=== PATIENT | male | born 1970 | race African-American/Black ===

== ENCOUNTER 2017-02-25 10:10 | Emergency (ER) | payer SELFPAY ==
[~2017-02-25] VITALS: Ht 180.3 cm; Wt 177.8 kg
[~2017-02-25 10:10] MED LIST: ATOR10 PO; CARD240C6 PO; IBUP600 PO; LORTA5 PO; MOBI7.5T PO
[2017-02-25 10:18] VITALS: BP 148/106; PULSE 92; RESP 16; TEMP 98.9; O2SAT 96
[2017-02-25] MEDS ORDERED: NAPROXEN 500 MG TAB PO ONE (10:30)
[2017-02-25] MEDS ORDERED: ATOR20TA15 PO ×2 (10:43→10:44)
[2017-02-25] MEDS ORDERED: DILT-64 PO (10:44)
[2017-02-25] MEDS ORDERED: ASPI1TAB69 PO (10:44)
--- NOTE | 2017-02-25 11:07 | RADHPO ---
EXAM DATE/TIME: 02/25/2017 10:37 [place] COMPARISON: No previous studies available for comparison. INDICATIONS : Right posterior ankle pain and swelling, patient fell through bathroom floor last night. MEDICAL HISTORY : None. SURGICAL HISTORY : None. ENCOUNTER: Initial ACUITY: 2 days PAIN SCORE: 8/10 LOCATION: Right posterior ankle FINDINGS: 4 views of the right ankle demonstrate no acute fracture or dislocation. Mineralization is normal and ankle mortise is intact. Ossification adjacent to lateral malleolus may be related to old trauma. Th ere were degenerative changes at the tibiotalar joint and likely at the subtalar joint. No soft tissu e abnormality or radiopaque foreign body is seen. CONCLUSION: Chronic changes are identified, as above. No definite acute finding is visualized. Jairo Ceron MD on February 25, 2017 at 11:03 Board Certified Radiologist. This report was verified electronically.
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
[2017-02-25] MEDS ORDERED: NAPR500T PO (11:20)
== END 2017-02-25 11:40 | disposition home or self-care (01) ==
LOC: PHED 10:10
DX: S93.401A Sprain of unspecified ligament of right ankle, initial encounter (principal); M19.90 Unspecified osteoarthritis, unspecified site; I10 Essential (primary) hypertension; E78.00 Pure hypercholesterolemia, unspecified; M10.9 Gout, unspecified; Z86.73 Personal history of transient ischemic attack (TIA), and cerebral infarction without residual deficits; X50.1XXA Overexertion from prolonged static or awkward postures, initial encounter
CPT/HCPCS: 73610; 99283; E0113